=== PATIENT | female | born 1980 | race Caucasian/White ===

== ENCOUNTER 2025-09-06 19:00 | Emergency (ER) | payer MEDICAID, SELFPAY ==
[2025-09-06 19:02] VITALS: BP 192/107; PULSE 69; RESP 18; TEMP 37.3; O2SAT 95; BMI 21.9
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
[2025-09-06] MEDS: Lidocaine 1% /Epi 1:100 (20ml) 20 ML Vial INFILT (19:28)
[2025-09-06] MEDS: Lidocaine/Epi/Tetracaine 50 ML 1 APPLIC TOPICAL (19:29)
--- NOTE | 2025-09-06 19:46 | ED.RN ---
CT staff comes up to this RN and states pt does not want CT scan, just wants to go home. this RN to bedside, pt states she still wants to be sutured. Dr. Ann notified.
[2025-09-06 20:20] VITALS: BP 192/107; PULSE 69; RESP 18; TEMP 37.3; O2SAT 95
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
== END 2025-09-06 20:23 | disposition home or self-care (01) ==
PROVIDERS: Emergency Provider Emergency Medicine; PCP Internal Medicine; Visit Provider Emergency Medicine
DX: S01.111A Laceration without foreign body of right eyelid and periocular area, initial encounter (principal); G10 Huntington's disease; Y04.8XXA Assault by other bodily force, initial encounter; F17.210 Nicotine dependence, cigarettes, uncomplicated
CPT/HCPCS: 12011; 99284